=== PATIENT | female | born 2000 | race American Indian/Alaskan Native ===

== ENCOUNTER 2020-05-03 17:57 | Emergency (ER) | payer SELFPAY ==
[2020-05-03 18:22] VITALS: BP 109/67
--- NOTE | 2020-05-03 18:47 | Emergency Department Report ---
ED ENT HPI - General Chief complaint: Dental/Oral Stated complaint: TOOTH PAIN Time Seen by Provider: 05/03/20 18:43 Source: patient Mode of arrival: Ambulatory Limitations: No Limitations - History of Present Illness Initial comments: Pt is a 20 yo female who presents to the ED with c/o left upper and lower dental pain that began yesterday. states she noticed left sided facial swelling. states that she saw a dentist earlier this year. she denies any fever, no chills, n/v/d. PMHx none. no allergies to meds. LNMP: 04/25/2020. states she has weak gums secondary to having all of her teeth pulled as a child. - Related Data Previous Rx's Medication Instructions Recorded Last Taken Type Amoxicillin [Trimox CAP] 500 mg PO Q8H #30 capsule 03/29/16 Unknown Rx Naproxen [Naprosyn] 500 mg PO BID #20 tablet 03/29/16 Unknown Rx Permethrin [Elimite] 60 gm TP ONCE #1 cream..g. 03/29/16 Unknown Rx hydrOXYzine HCL [Atarax] 25 mg PO Q6HR PRN #30 tablet 03/29/16 Unknown Rx Chlorhexidine Mouthwash [Peridex] 15 ml MM BID #1 bottle 05/03/20 Unknown Rx Naproxen [EC-Naprosyn] 500 mg PO BID PRN #14 tablet. 05/03/20 Unknown Rx Penicillin Vk [Veetids TAB] 500 mg PO QID 7 Days #56 tablet 05/03/20 Unknown Rx Allergies Allergy/AdvReac Type Severity Reaction Status Date / Time No Known Allergies Allergy Unverified 03/28/16 23:11 ED Dental HPI - General Chief complaint: Dental/Oral Stated complaint: TOOTH PAIN Time Seen by Provider: 05/03/20 18:43 Source: patient Mode of arrival: Ambulatory Limitations: No Limitations - Related Data Previous Rx's Medication Instructions Recorded Last Taken Type Amoxicillin [Trimox CAP] 500 mg PO Q8H #30 capsule 03/29/16 Unknown Rx Naproxen [Naprosyn] 500 mg PO BID #20 tablet 03/29/16 Unknown Rx Permethrin [Elimite] 60 gm TP ONCE #1 cream..g. 03/29/16 Unknown Rx hydrOXYzine HCL [Atarax] 25 mg PO Q6HR PRN #30 tablet 03/29/16 Unknown Rx Chlorhexidine Mouthwash [Peridex] 15 ml MM BID #1 bottle 05/03/20 Unknown Rx Naproxen [EC-Naprosyn] 500 mg PO BID PRN #14 tablet. 05/03/20 Unknown Rx Penicillin Vk [Veetids TAB] 500 mg PO QID 7 Days #56 tablet 05/03/20 Unknown Rx Allergies Allergy/AdvReac Type Severity Reaction Status Date / Time No Known Allergies Allergy Unverified 03/28/16 23:11 ED Review of Systems ROS: Stated complaint: TOOTH PAIN Other details as noted in HPI Comment: All other systems reviewed and negative ED Past Medical Hx - Past Medical History Previous Medical History?: No - Surgical History Past Surgical History?: No - Social History Smoking Status: Never Smoker - Medications Home Medications: Home Medications Medication Instructions Recorded Confirmed Last Taken Type Amoxicillin [Trimox CAP] 500 mg PO Q8H #30 capsule 03/29/16 Unknown Rx Naproxen [Naprosyn] 500 mg PO BID #20 tablet 03/29/16 Unknown Rx Permethrin [Elimite] 60 gm TP ONCE #1 cream..g. 03/29/16 Unknown Rx hydrOXYzine HCL [Atarax] 25 mg PO Q6HR PRN #30 tablet 03/29/16 Unknown Rx Chlorhexidine Mouthwash [Peridex] 15 ml MM BID #1 bottle 05/03/20 Unknown Rx Naproxen [EC-Naprosyn] 500 mg PO BID PRN #14 tablet. 05/03/20 Unknown Rx Penicillin Vk [Veetids TAB] 500 mg PO QID 7 Days #56 tablet 05/03/20 Unknown Rx ED Physical Exam - General Limitations: No Limitations General appearance: alert, in no apparent distress - Head Head exam: Present: atraumatic, normocephalic - Eye Eye exam: Present: normal appearance - ENT ENT exam: Present: mucous membranes moist, other (there is a missing tooth present to the left upper back molar, there is erythema and induration of the left lower gumline with hypertropy of the gums, no area of fluctuance, no facial edema, no trismus, uvula is midline, no uvular edema or deviation, no muffled voice, no tongue elevation) - Respiratory Respiratory exam: Present: normal lung sounds bilaterally. Absent: respiratory distress, wheezes, rales, rhonchi, stridor, chest wall tenderness, accessory muscle use, decreased breath sounds, prolonged expiratory - Cardiovascular Cardiovascular Exam: Present: normal rhythm, bradycardia, normal heart sounds. Absent: systolic murmur, diastolic murmur, rubs, gallop - Neurological Exam Neurological exam: Present: alert, oriented X3 - Psychiatric Psychiatric exam: Present: normal affect, normal mood - Skin Skin exam: Present: warm, dry, intact ED Course Vital Signs 05/03/20 18:20 Temperature 98.4 F Pulse Rate 48 L Respiratory 18 Rate Blood Pressure 109/67 O2 Sat by Pulse 100 Oximetry ED Medical Decision Making - Medical Decision Making Pt is a 20 yo female who presents to the ED with c/o left upper and lower dental pain that began yesterday. states she noticed left sided facial swelling. states that she saw a dentist earlier this year. she denies any fever, no chills, n/v/d. PMHx none. no allergies to meds. LNMP: 04/25/2020. states she has weak gums secondary to having all of her teeth pulled as a child. VSS. on exam: there is a missing tooth present to the left upper back molar, there is erythema and induration of the left lower gumline with hypertropy of the gums, no area of fluctuance, no facial edema, no trismus, uvula is midline, no uvular edema or deviation, no muffled voice, no tongue elevation. Examination appears consistent with dental caries and gingivitis. No signs of facial cellulitis, dental abscess, Ludwigs at this time. Patient given prescription for penicillin VK, chlorhexidine mouthwash, naproxen. Advised patient Please use medication as prescribed. Please follow-up with a dentist. It is very important that you follow-up. Please do warm salt water gargles 3 times a day. May use Orajel [id number]. Return to emergency room for any new or worsening symptoms. Critical care attestation.: If time is entered above; I have spent that time in minutes in the direct care of this critically ill patient, excluding procedure time. ED Disposition Clinical Impression: Dental caries, Gingivitis, Toothache Disposition: TO HOME OR SELFCARE Is pt being admited?: No Does the pt Need Aspirin: No Condition: Stable Instructions: Dental Caries (ED), Gingivitis (ED) Additional Instructions: Please use medication as prescribed. Please follow-up with a dentist. It is very important that you follow-up. Please do warm salt water gargles 3 times a day. May use Orajel [id number]. Return to emergency room for any new or worsening symptoms. Prescriptions: Naproxen [EC-Naprosyn] 500 mg PO BID PRN #14 tablet. PRN Reason: pain Chlorhexidine Mouthwash [Peridex] 15 ml MM BID #1 bottle Penicillin Vk [Veetids TAB] 500 mg PO QID 7 Days #56 tablet Referrals: [facility] [Outside] - 2-3 Days [facility] [Outside] - 2-3 Days Time of Disposition: 18:49 Print Language: PRYDEINIG
== END 2020-05-03 19:13 | disposition home or self-care (01) ==
LOC: ED 17:57
DX: K02.9 Dental caries, unspecified (principal); K05.10 Chronic gingivitis, plaque induced; K08.89 Other specified disorders of teeth and supporting structures; Z79.899 Other long term (current) drug therapy
CPT/HCPCS: 99281